=== PATIENT | male | born 1980 | race Caucasian/White ===

== ENCOUNTER 2021-12-22 13:52 | Inpatient (IN) | payer OTHER ==
[2021-12-22 16:58] VITALS: BMI 31.7
[2021-12-22] MEDS ORDERED: MAGNESIUM HYDROX 2400MG/30ML ORAL SUSPENSION 30 ML CUP PO PRN (17:50)
[2021-12-22] MEDS ORDERED: MAG HYDROX/AL HYDROX/SIMETH 30 ML UNIT-DOSE CUP PO PRN (17:50)
[2021-12-22] MEDS ORDERED: NICOTINE POLACRILEX 2 MG GUM BC PRN (17:50)
[2021-12-22] MEDS ORDERED: IBUPROFEN 400 MG TABLET (FP) PO PRN (17:50)
[2021-12-22] MEDS ORDERED: hydrOXYzine PAMOATE 25 MG CAPSULE (FP) PO PRN (17:50)
[2021-12-22] MEDS ORDERED: MAGNESIUM CITRATE 300 ML BOTTLE PO PRN (17:50)
[2021-12-22] MEDS ORDERED: guaiFENesin 200 MG/10 ML 10 ML UNIT-DOSE CUPS PO PRN (17:50)
[2021-12-22] MEDS ORDERED: P-EPHED 60MG/TRIPROLIDI 2.5MG TABLET PO PRN (17:50)
[2021-12-22] MEDS ORDERED: LOPERAMIDE HCL 2 MG CAPSULE PO PRN (17:50)
[2021-12-22] MEDS ORDERED: ALBUTEROL SO4 HFA INHALER IH PRN (17:52)
[2021-12-22] MEDS ORDERED: TUBERCULIN PPD 5 TU/0.1ML VIAL ID ONE (21:39)
[2021-12-22] MEDS: THIAMINE HCL 100 MG TABLET (FP) PO SCH (22:03)
[2021-12-22] MEDS: APIXABAN 5 MG TABLET PO SCH (22:03)
[2021-12-22] MEDS: MELATONIN 5 MG TABLETS PO PRN (22:04)
[2021-12-22 22:29] VITALS: RESP 18
[2021-12-23] MEDS ORDERED: methaDONE HCL 40 MG DISPERSABLE TABLET PO ONE (08:15)
[2021-12-23] MEDS: APIXABAN 5 MG TABLET PO SCH ×2 (09:06→21:29)
[2021-12-23] MEDS: PRENATAL VITAMINS W/ FOLIC ACID TABLET (FP) PO SCH (09:06)
[2021-12-23 10:30] LABS: HEMATOCRIT 40.7 % (35.4-49); HEMOGLOBIN 12.8 GM/dL (11.7-16.9); MCH 23.7 pg (25.7-33.7); MCHC 31.3 g/dl (32.0-35.9); MEAN CELL VOLUME 75.5 fl (80-96); MEAN PLT VOLUME 9.6 fl (7.5-11.1); PLATELET COUNT 233 10^3/uL (134-434); RBC 5.39 M/mm3 (4.00-5.60); RDW 16.2 % (11.9-15.9); WHITE BLOOD COUNT 9.4 K/mm3 (4.0-10.0)
[2021-12-23 10:33] LABS: EPI CELLS 3 /uL (0-25.1); HYALINE CASTS 1 /uL (0-3.1); PH,URINE 5.5 (5.0-8.0); URINE APPEARANCE CLEAR; URINE BACTERIA 4 /uL (0-1359); URINE BILIRUBIN NEGATIVE (NEGATIVE); URINE COLOR YELLOW; URINE GLUCOSE (UA) NEGATIVE (NEGATIVE); URINE KETONE NEGATIVE (NEGATIVE); URINE LEUK ESTERASE NEGATIVE (NEGATIVE); URINE NITRITE NEGATIVE (NEGATIVE); URINE PROTEIN NEGATIVE (NEGATIVE); URINE RBC 23 /uL (0-23.9); URINE UROBILINOGEN 0.2 mg/dL (0.2-1.0); URINE WBC 7 /uL (0-25.8)
[2021-12-23 10:36] LABS: CALCIUM 9.1 mg/dL (8.5-10.1)
[2021-12-23 10:37] LABS: ALBUMIN 3.2 g/dl (3.4-5.0); BLOOD UREA NITROGEN 14.5 mg/dL (7-18)
[2021-12-23 10:40] LABS: CREATININE 0.8 mg/dL (0.55-1.3)
[2021-12-23 10:41] LABS: BILIRUBIN,TOTAL 0.3 mg/dL (0.2-1)
[2021-12-23 10:42] LABS: TOT PROT 7.1 g/dl (6.4-8.2)
[2021-12-23] MEDS: THIAMINE HCL 100 MG TABLET (FP) PO SCH (21:29)
[2021-12-23] MEDS: MELATONIN 5 MG TABLETS PO PRN (21:29)
[2021-12-24] MEDS: methaDONE HCL 40 MG DISPERSABLE TABLET PO SCH (06:08)
[2021-12-24] MEDS: ACETAMINOPHEN 325 MG TABLET (FP) PO PRN ×3 (06:10→21:06)
[2021-12-24] MEDS: APIXABAN 5 MG TABLET PO SCH ×2 (10:13→21:05)
[2021-12-24] MEDS: PRENATAL VITAMINS W/ FOLIC ACID TABLET (FP) PO SCH (10:13)
[2021-12-24] MEDS: MELATONIN 5 MG TABLETS PO PRN (21:05)
[2021-12-24] MEDS: THIAMINE HCL 100 MG TABLET (FP) PO SCH (21:05)
[2021-12-25] MEDS: methaDONE HCL 40 MG DISPERSABLE TABLET PO SCH (06:03)
[2021-12-25] MEDS: PRENATAL VITAMINS W/ FOLIC ACID TABLET (FP) PO SCH (09:53)
[2021-12-25] MEDS: APIXABAN 5 MG TABLET PO SCH ×2 (09:53→21:34)
[2021-12-25] MEDS: ACETAMINOPHEN 325 MG TABLET (FP) PO PRN (09:54)
[2021-12-25] MEDS: MELATONIN 5 MG TABLETS PO PRN (21:34)
[2021-12-25] MEDS: THIAMINE HCL 100 MG TABLET (FP) PO SCH (21:34)
[2021-12-26] MEDS: methaDONE HCL 40 MG DISPERSABLE TABLET PO SCH (06:37)
[2021-12-26] MEDS: APIXABAN 5 MG TABLET PO SCH ×2 (10:26→21:44)
[2021-12-26] MEDS: PRENATAL VITAMINS W/ FOLIC ACID TABLET (FP) PO SCH (10:26)
[2021-12-26] MEDS: THIAMINE HCL 100 MG TABLET (FP) PO SCH (21:44)
[2021-12-26] MEDS: MELATONIN 5 MG TABLETS PO PRN (21:44)
[2021-12-27] MEDS: methaDONE HCL 40 MG DISPERSABLE TABLET PO SCH (06:17)
[2021-12-27] MEDS: APIXABAN 5 MG TABLET PO SCH ×2 (10:12→21:26)
[2021-12-27] MEDS: PRENATAL VITAMINS W/ FOLIC ACID TABLET (FP) PO SCH (10:12)
[2021-12-27] MEDS: MELATONIN 5 MG TABLETS PO PRN (21:26)
[2021-12-27] MEDS: THIAMINE HCL 100 MG TABLET (FP) PO SCH (21:26)
[2021-12-28] MEDS: methaDONE HCL 40 MG DISPERSABLE TABLET PO SCH (06:40)
[2021-12-28] MEDS: PRENATAL VITAMINS W/ FOLIC ACID TABLET (FP) PO SCH (10:31)
[2021-12-28] MEDS: APIXABAN 5 MG TABLET PO SCH ×2 (10:31→21:13)
[2021-12-28] MEDS: THIAMINE HCL 100 MG TABLET (FP) PO SCH (21:13)
[2021-12-28] MEDS: MELATONIN 5 MG TABLETS PO PRN (21:13)
[2021-12-29] MEDS: methaDONE HCL 40 MG DISPERSABLE TABLET PO SCH (06:12)
[2021-12-29] MEDS: APIXABAN 5 MG TABLET PO SCH ×2 (10:33→21:10)
[2021-12-29] MEDS: PRENATAL VITAMINS W/ FOLIC ACID TABLET (FP) PO SCH (10:33)
[2021-12-29] MEDS: THIAMINE HCL 100 MG TABLET (FP) PO SCH (21:10)
[2021-12-29] MEDS: MELATONIN 5 MG TABLETS PO PRN (21:10)
[2021-12-30] MEDS: methaDONE HCL 40 MG DISPERSABLE TABLET PO SCH (06:09)
[2021-12-30] MEDS: PRENATAL VITAMINS W/ FOLIC ACID TABLET (FP) PO SCH (10:13)
[2021-12-30] MEDS: APIXABAN 5 MG TABLET PO SCH ×2 (10:13→21:26)
[2021-12-30] MEDS ORDERED: DOCUSATE SODIUM 100 MG CAPSULE (FP) PO PRN (11:42)
[2021-12-30] MEDS: THIAMINE HCL 100 MG TABLET (FP) PO SCH (21:26)
[2021-12-30] MEDS: MELATONIN 5 MG TABLETS PO PRN (21:26)
[2021-12-31] MEDS: methaDONE HCL 40 MG DISPERSABLE TABLET PO SCH (06:33)
[2021-12-31] MEDS: ACETAMINOPHEN 325 MG TABLET (FP) PO PRN (06:33)
[2021-12-31] MEDS: PRENATAL VITAMINS W/ FOLIC ACID TABLET (FP) PO SCH (09:42)
[2021-12-31] MEDS: APIXABAN 5 MG TABLET PO SCH ×2 (09:42→21:17)
[2021-12-31] MEDS: MELATONIN 5 MG TABLETS PO PRN (21:17)
[2021-12-31] MEDS: THIAMINE HCL 100 MG TABLET (FP) PO SCH (21:17)
[2022-01-01] MEDS: methaDONE HCL 40 MG DISPERSABLE TABLET PO SCH (06:19)
[2022-01-01] MEDS: ACETAMINOPHEN 325 MG TABLET (FP) PO PRN ×2 (06:20→21:24)
[2022-01-01] MEDS: PRENATAL VITAMINS W/ FOLIC ACID TABLET (FP) PO SCH (10:06)
[2022-01-01] MEDS: APIXABAN 5 MG TABLET PO SCH ×2 (10:07→21:24)
[2022-01-01] MEDS: THIAMINE HCL 100 MG TABLET (FP) PO SCH (21:24)
[2022-01-01] MEDS: MELATONIN 5 MG TABLETS PO PRN (21:24)
[2022-01-02] MEDS: methaDONE HCL 40 MG DISPERSABLE TABLET PO SCH (06:17)
[2022-01-02] MEDS: PRENATAL VITAMINS W/ FOLIC ACID TABLET (FP) PO SCH (10:51)
[2022-01-02] MEDS: APIXABAN 5 MG TABLET PO SCH ×2 (10:51→21:29)
[2022-01-02] MEDS: THIAMINE HCL 100 MG TABLET (FP) PO SCH (21:29)
[2022-01-02] MEDS: MELATONIN 5 MG TABLETS PO PRN (21:29)
[2022-01-02] MEDS: ACETAMINOPHEN 325 MG TABLET (FP) PO PRN (21:30)
[2022-01-03] MEDS: methaDONE HCL 40 MG DISPERSABLE TABLET PO SCH (06:09)
[2022-01-03] MEDS: APIXABAN 5 MG TABLET PO SCH ×2 (10:28→21:27)
[2022-01-03] MEDS: PRENATAL VITAMINS W/ FOLIC ACID TABLET (FP) PO SCH (10:28)
[2022-01-03] MEDS: THIAMINE HCL 100 MG TABLET (FP) PO SCH (21:28)
[2022-01-03] MEDS: MELATONIN 5 MG TABLETS PO PRN (21:28)
[2022-01-04] MEDS: methaDONE HCL 40 MG DISPERSABLE TABLET PO SCH (06:00)
[2022-01-04] MEDS: APIXABAN 5 MG TABLET PO SCH ×2 (09:46→21:15)
[2022-01-04] MEDS: PRENATAL VITAMINS W/ FOLIC ACID TABLET (FP) PO SCH (09:46)
[2022-01-04] MEDS: MELATONIN 5 MG TABLETS PO PRN (21:15)
[2022-01-04] MEDS: THIAMINE HCL 100 MG TABLET (FP) PO SCH (21:15)
[2022-01-05] MEDS: methaDONE HCL 40 MG DISPERSABLE TABLET PO SCH (05:56)
[2022-01-05] MEDS: APIXABAN 5 MG TABLET PO SCH ×2 (10:10→21:20)
[2022-01-05] MEDS: PRENATAL VITAMINS W/ FOLIC ACID TABLET (FP) PO SCH (10:10)
[2022-01-05] MEDS: MELATONIN 5 MG TABLETS PO PRN (21:20)
[2022-01-05] MEDS: THIAMINE HCL 100 MG TABLET (FP) PO SCH (21:20)
[2022-01-06] MEDS: methaDONE HCL 40 MG DISPERSABLE TABLET PO SCH (06:35)
[2022-01-06 06:43] VITALS: BP 114/68; PULSE 72; TEMP 97.7
[2022-01-06] MEDS: PRENATAL VITAMINS W/ FOLIC ACID TABLET (FP) PO SCH (09:50)
[2022-01-06] MEDS: APIXABAN 5 MG TABLET PO SCH (09:50)
== END 2022-01-06 10:50 | disposition home or self-care (01) | DRG 772 ==
LOC: YASAS 13:52 → Y3W 19:18
PROVIDERS: ADMIT Allergy & Immunology; ATTEND Psychiatry & Neurology Pain Medicine
PROC: HZ42ZZZ Group Counseling for Substance Abuse Treatment, Cognitive-Behavioral (ICD-10-PCS; principal; 2021-12-23)
DX: F11.20 Opioid dependence, uncomplicated (principal); F14.20 Cocaine dependence, uncomplicated; F12.20 Cannabis dependence, uncomplicated; F17.210 Nicotine dependence, cigarettes, uncomplicated; F41.9 Anxiety disorder, unspecified; F32.A Depression, unspecified; L97.921 Non-pressure chronic ulcer of unspecified part of left lower leg limited to breakdown of skin; D68.59 Other primary thrombophilia; Z86.718 Personal history of other venous thrombosis and embolism; Z79.01 Long term (current) use of anticoagulants; Z86.711 Personal history of pulmonary embolism; Z99.89 Dependence on other enabling machines and devices
CPT/HCPCS: 36415; 80053; 81003; 85027; 86780; 87811; C9803-CS; U0003; U0005